=== PATIENT | female | born 1980 | race Caucasian/White ===

== ENCOUNTER 2016-12-14 23:49 | Emergency (ER) | payer MEDICAID ==
[~2016-12-14] VITALS: Ht 165.1 cm; Wt 106.0 kg
[2016-12-15] MEDS ORDERED: SODIUM CHLORIDE 0.9% 1,000 ML IV ONE (01:42)
[2016-12-15 02:39] LABS: BASOPHILS % 0.5 % (0.0-2.0); EOSINOPHILS % 7.8 % (0.0-5.0); HEMATOCRIT. 38.2 % (36.0-48.0); HEMOGLOBIN. 13.1 g/dL (12.0-16.0); LYMPHOCYTES % 23.5 % (20.0-50.0); MEAN CORPUSCULAR HEMOGLOBIN 29.5 pg (28.0-32.0); MEAN CORPUSCULAR VOLUME 86.4 fL (81.0-99.0); MEAN PLATELET VOLUME 8.2 fl (7.4-10.4); MONOCYTES % 7.3 % (2.0-8.0); NEUTROPHILS % 60.9 % (40.0-76.0); PLATELET 287 x1000/uL (130-400); RED BLOOD CELL COUNT 4.42 mill/uL (4.2-5.4); RED CELL DISTRIBUTION WIDTH 13.2 % (11.6-14.6)
[2016-12-15 02:42] LABS: CHLORIDE 102 mEq/L (98-107)
[2016-12-15 02:58] LABS: CARBON DIOXIDE 27 mEq/L (21-32)
[2016-12-15 03:07] LABS: B-HCG QUANTITATIVE 39925 mIU/mL (<3)
[2016-12-15 04:20] VITALS: BP 131/79
== END 2016-12-15 05:02 | disposition home or self-care (01) ==
LOC: ER 12-15 01:52
DX: O20.0 Threatened abortion (principal); Z3A.11 11 weeks gestation of pregnancy
CPT/HCPCS: 36415; 76801; 76817; 80048; 81025; 84702; 85025; 86850; 86900; 86901; 96360; 99285; Z7610; J7030

== ENCOUNTER 2017-06-12 19:07 | Inpatient (IN) | payer MEDICAID ==
[~2017-06-12] VITALS: Ht 160 cm; Wt 118.8 kg
[2017-06-12] MEDS ORDERED: FERR325T6 PO (20:03)
[2017-06-12] MEDS ORDERED: PNV1TABL76 MT (20:03)
[2017-06-12] MEDS ORDERED: DEXT 5%/LR + PITOCIN 20UNITS/L 1,000 ML IV SCH (22:05)
[2017-06-12] MEDS ORDERED: METHYLERGONOVINE MALEATE 0.2 MG/ML IM PRN (22:15)
[2017-06-12] MEDS ORDERED: CARBOPROST TROMETHAMINE 250 MCG/ML AMPUL IM PRN (22:15)
[2017-06-12] MEDS ORDERED: NALOXONE HCL 0.4 MG/ML 1ML VIAL IM PRN (22:15)
[2017-06-12] MEDS: LACTATED RINGERS 1,000 ML IV SCH ×2 (22:39→23:03)
[2017-06-12 23:05] LABS: CLARITY URINE CLOUDY (CLEAR); COLOR URINE YELLOW (YELLOW); KETONES URINE NEGATIVE (NEGATIVE); LEUKOCYTE ESTERASE URINE 1+ (NEGATIVE); NITRITE URINE NEGATIVE (NEGATIVE); OCCULT BLOOD URINE 1+ (NEGATIVE); PROTEIN URINE NEGATIVE (NEGATIVE); SPECIFIC GRAVITY URINE 1.018 (1.005-1.030)
[2017-06-12 23:05] LABS: BASOPHILS % 0.4 % (0.0-2.0); EOSINOPHILS % 7.8 % (0.0-5.0); HEMATOCRIT. 38.1 % (36.0-48.0); HEMOGLOBIN. 13.1 g/dL (12.0-16.0); LYMPHOCYTES % 17.5 % (20.0-50.0); MEAN CORPUSCULAR HEMOGLOBIN 29.3 pg (28.0-32.0); MEAN CORPUSCULAR VOLUME 85.5 fL (81.0-99.0); MONOCYTES % 6.9 % (2.0-8.0); NEUTROPHILS % 67.4 % (40.0-76.0); PLATELET 231 x1000/uL (130-400); RED BLOOD CELL COUNT 4.46 mill/uL (4.2-5.4); RED CELL DISTRIBUTION WIDTH 13.5 % (11.6-14.6)
[2017-06-12 23:14] LABS: *AMPHETAMINES SCREEN URINE NEGATIVE (NEGATIVE); *BARBITURATES SCREEN URINE NEGATIVE (NEGATIVE); *BENZODIAZEPINES SCREEN URINE NEGATIVE (NEGATIVE); *COCAINE SCREEN URINE NEGATIVE (NEGATIVE); CANNABINOID URINE SCREEN NEGATIVE (NEGATIVE); METHADONE URINE SCREEN NEGATIVE (NEGATIVE); OPIATES URINE SCREEN NEGATIVE (NEGATIVE); PHENCYCLIDINE URINE SCREEN NEGATIVE (NEGATIVE)
[2017-06-12] MEDS ORDERED: MORPHINE SULFATE/PF 1MG/ML 10ML AMP ONE (23:32)
[2017-06-13] VITALS (8 sets, daily range): BP systolic 99–136; BP diastolic 58–84
[2017-06-13] MEDS ORDERED: MEPERIDINE HCL/PF 25MG/ML CPJ IV PRN
[2017-06-13] MEDS ORDERED: LABETALOL HCL 20MG/4ML CARPUJECT IV PRN
[2017-06-13] MEDS ORDERED: HYDROMORPHONE HCL/PF 2MG/ML CPJ IV PRN
[2017-06-13] MEDS ORDERED: BISACODYL 10MG SUPP PR PRN (00:30)
[2017-06-13] MEDS ORDERED: IBUPROFEN 400MG TABLET PO PRN (00:30)
[2017-06-13] MEDS ORDERED: HYDROCODONE/ACETAMINOPHEN 5/325MG TABLET PO PRN (00:30)
[2017-06-13] MEDS ORDERED: HYDROMORPHONE HCL/PF 2MG/ML CPJ IM PRN (00:30)
[2017-06-13] MEDS ORDERED: RHO(D) IMMUNE GLOBULIN 300 MCG/SYR IM PRN (00:30)
[2017-06-13] MEDS ORDERED: OXYTOCIN 20 UNITS in LACTATED RINGERS 1,000 ML IV SCH (02:00)
[2017-06-13] MEDS: DIPHENHYDRAMINE 50MG/ML VIAL IV PRN ×3 (03:17→17:10)
[2017-06-13] MEDS ORDERED: ONDANSETRON HCL 4MG/2ML VIAL IV PRN ×2 (06:30)
[2017-06-13 08:18] LABS: BASOPHILS % 0.2 % (0.0-2.0); EOSINOPHILS % 2.8 % (0.0-5.0); HEMATOCRIT. 38.4 % (36.0-48.0); HEMOGLOBIN. 13.1 g/dL (12.0-16.0); LYMPHOCYTES % 8.2 % (20.0-50.0); MEAN CORPUSCULAR HEMOGLOBIN 29.2 pg (28.0-32.0); MEAN CORPUSCULAR VOLUME 85.5 fL (81.0-99.0); MEAN PLATELET VOLUME 9.8 fl (7.4-10.4); MONOCYTES % 8.4 % (2.0-8.0); NEUTROPHILS % 80.4 % (40.0-76.0); PLATELET 215 x1000/uL (130-400); RED BLOOD CELL COUNT 4.49 mill/uL (4.2-5.4); RED CELL DISTRIBUTION WIDTH 13.3 % (11.6-14.6)
[2017-06-13] MEDS ORDERED: INFLUENZA VIRUS VACCINE 0.5ML SYR IM ONE (10:00)
[2017-06-13] MEDS: LACTATED RINGERS 1,000 ML IV SCH (10:19)
[2017-06-13] MEDS: KETOROLAC 30MG/ML VIAL IV PRN ×2 (10:19→17:15)
[2017-06-13] MEDS ORDERED: PNEUMOCOCCAL 23-VAL P-SAC VAC 0.5 ML IM ONE (11:00)
[2017-06-13 17:35] LABS: HEPATITIS B SURFACE ANTIGEN NEGATIVE
[2017-06-13 17:39] LABS: RUBELLA IGG > 500.0 IU/mL (4.99-10)
[2017-06-14] VITALS: BP 109/61
[2017-06-14 04:45] VITALS: BP 101/59
[2017-06-14 08:00] VITALS: BP 122/77
[2017-06-14] MEDS: IBUPROFEN 800MG TABLET PO PRN ×2 (09:16→20:48)
[2017-06-14 16:00] VITALS: BP 120/78
[2017-06-14 19:40] VITALS: BP 113/68
[2017-06-15 00:01] VITALS: BP 126/68
[2017-06-15 04:00] VITALS: BP 130/81
[2017-06-15 07:59] VITALS: BP 139/87
[2017-06-15] MEDS ORDERED: TETANUS, DIPHTHERIA, PERTUSSIS VAC/PF 0.5ML (>7YR OLD) IM ONE (08:00)
[2017-06-15 09:45] VITALS: BP 139/87
[2017-06-15] MEDS: IBUPROFEN 800MG TABLET PO PRN (09:45)
[2017-06-15] MEDS ORDERED: INFLUENZA VIRUS VACCINE 0.5ML SYR IM ONE (10:00)
== END 2017-06-15 12:10 | disposition home or self-care (01) | DRG 540 ==
LOC: OBSVTOIN 19:07 → L&D 19:07 → 7EST PP/OB 06-13 03:26
PROVIDERS: ADMIT Obstetrics & Gynecology; ATTEND Obstetrics & Gynecology
PROC: 10D00Z1 Extraction of Products of Conception, Low, Open Approach (ICD-10-PCS; principal; 2017-06-13 00:26)
DX: O24.420 Gestational diabetes mellitus in childbirth, diet controlled (principal); O60.14X0 Preterm labor third trimester with preterm delivery third trimester, not applicable or unspecified; O32.1XX0 Maternal care for breech presentation, not applicable or unspecified; O36.63X0 Maternal care for excessive fetal growth, third trimester, not applicable or unspecified; Z3A.36 36 weeks gestation of pregnancy; Z37.0 Single live birth
CPT/HCPCS: 36415; 76805; 76818; 80305; 81001; 85025; 85610; 85730; 86592; 86703; 86762; 86850; 86900; 87340; 88307; 90686; 90715; G0378; J1200; J1885; J2274; J2405; J2590; J7120

== ENCOUNTER 2017-06-18 21:00 | Emergency (ER) | payer MEDICAID ==
[~2017-06-18] VITALS: Ht 160 cm; Wt 112.0 kg
[~2017-06-18 21:00] MED LIST: FERR325T6 PO; PNV1TABL76 MT
[2017-06-18 21:51] VITALS: BP 136/92
== END 2017-06-18 23:15 | disposition left against medical advice (07) ==
LOC: ER 22:09
DX: R06.9 Unspecified abnormalities of breathing (principal); Z53.21 Procedure and treatment not carried out due to patient leaving prior to being seen by health care provider

== ENCOUNTER 2021-11-18 16:39 | Emergency (ER) | payer MEDICAID ==
[~2021-11-18] VITALS: Ht 167.6 cm; Wt 87.0 kg
[2021-11-18 16:47] VITALS: BP 125/69
[2021-11-18] MEDS ORDERED: ACETAMINOPHEN 325MG TABLET PO ONE (17:30)
[2021-11-18 17:47] LABS: CLARITY URINE TURBID (CLEAR); COLOR URINE DARK YELLOW (YELLOW); KETONES URINE TRACE (NEGATIVE); LEUKOCYTE ESTERASE URINE 3+ (NEGATIVE); NITRITE URINE POSITIVE (NEGATIVE); OCCULT BLOOD URINE 3+ (NEGATIVE); PH URINE 5.5 (4.5-8.0); PROTEIN URINE 3+ (NEGATIVE); SPECIFIC GRAVITY URINE 1.021 (1.005-1.030)
[2021-11-18 19:24] LABS: BASOPHILS % 0.3 % (0.0-2.0); EOSINOPHILS % 3.2 % (0.0-5.0); HEMATOCRIT. 39.3 % (36.0-48.0); HEMOGLOBIN. 13.3 g/dL (12.0-16.0); LYMPHOCYTES % 7.8 % (20.0-50.0); MEAN CORPUSCULAR HEMOGLOBIN 29.4 pg (28.0-32.0); MEAN PLATELET VOLUME 8.2 fl (7.4-10.4); MONOCYTES % 4.9 % (2.0-8.0); NEUTROPHILS % 83.8 % (40.0-76.0); PLATELET 307 x1000/uL (130-400); RED BLOOD CELL COUNT 4.52 mill/uL (4.2-5.4); RED CELL DISTRIBUTION WIDTH 12.7 % (11.6-14.6)
[2021-11-18 19:27] LABS: CHLORIDE 102 mEq/L (98-107)
[2021-11-18 19:50] LABS: B-HCG QUANTITATIVE 9541 mIU/mL (<3)
[2021-11-18] MEDS ORDERED: CEPHALEXIN 250MG CAPSULE PO ONE (20:00)
[2021-11-18] MEDS ORDERED: ACET-2708 MT (20:13)
[2021-11-18] MEDS ORDERED: CEPH500C2 MT (20:14)
== END 2021-11-18 20:21 ==
LOC: ER 16:39
DX: N39.0 Urinary tract infection, site not specified (principal); Z79.899 Other long term (current) drug therapy
CPT/HCPCS: 36415; 76801; 80053; 81003; 81025; 84702; 85025; 86850; 86900; 87077; 87186; 99284

== ENCOUNTER 2021-12-05 16:17 | Emergency (ER) | payer MEDICAID ==
[~2021-12-05] VITALS: Ht 167.6 cm; Wt 89.0 kg
[~2021-12-05 16:17] MED LIST changes: +ACET-2708 MT; +CEPH500C2 MT
[2021-12-05 17:05] VITALS: BP 129/75
== END 2021-12-05 20:53 | disposition home or self-care (01) ==
LOC: ER 16:17
DX: O03.9 Complete or unspecified spontaneous abortion without complication (principal)
CPT/HCPCS: 36415; 76801; 81025; 84702; 99284